=== PATIENT | male | born 1980 | race Caucasian/White ===

== ENCOUNTER 2016-09-26 10:54 | Emergency (ER) | payer OTHER ==
[~2016-09-26] VITALS: Ht 177.8 cm; Wt 79.6 kg
[~2016-09-26 10:54] MED LIST: ANTI-DIARRHEA2 MG PO; BACLOFEN20 MG PO; CIPRO500 MG PO; COMPAZINE10 MG PO; CYCLOBENZAPRINE 10MG; DICYCLOMINE HCL20 MG PO; EXCEDRIN MIGRA1 EACH PO; FLAGYL500 MG PO; FLEXERIL10 MG PO; HYDROCODON-ACE1 EAC7 PO; IBUPROFEN800 MG PO; INDOCIN25 MG PO; LIDODERM 5% P1 PATCH TD; NAPROSYN500 MG PO; NAPROXEN SODIU550 MG; NAPROXEN500 MG PO; PEN-VEE K,VEET500 MG PO; PERCOCET 5/31 TABLET PO; PREDNISONE10 MG PO; ZOFRAN ODT4 MG PO
[2016-09-26 11:56] LABS: HEMATOCRIT 42.6 % (38.0-50.0); MEAN PLAT.VOLUME 11.7 uM^3 (9.0-12.4); PLATELET COUNT 179 K/uL (156-360); RBC DIS.WIDTH-CV 14.3 % (11.8-14.6); RBC DIS.WIDTH-SD 45.9 % (39-53); RED BLOOD COUNT 4.84 M/uL (4.00-5.50); WHITE BLOOD COUNT 13.6 K/uL (4.1-10.2)
[2016-09-26 12:11] LABS: CHLORIDE 102 mEq/L (99-109); POTASSIUM 4.3 mEq/L (3.7-5.4); SODIUM 138 mEq/L (136-147)
[2016-09-26 12:13] LABS: GLUCOSE 84 mg/dL (70-99)
[2016-09-26 12:14] LABS: ANION GAP 10 MEQ/L (2-14)
[2016-09-26 12:15] LABS: TOTAL BILIRUBIN 0.9 mg/dL (0.0-1.0)
[2016-09-26 12:16] LABS: ALKALINE PHOSPHATASE 62 IU/L (3-129)
[2016-09-26 12:17] LABS: GFR ESTIMATE (CALCULATED) > 59 mL/min/
[2016-09-26 12:18] LABS: UREA NITROGEN (BUN) 19 mg/dL (9-23)
[2016-09-26 12:20] LABS: LIPASE 38 U/L (1.0-51.0)
[2016-09-26 12:28] LABS: ADD MIUA? YES; BILIRUBIN NEGATIVE; BLOOD NEGATIVE; COLOR YELLOW ((YELLOW)); GLUCOSE (STRIP) NEGATIVE; KETONES NEGATIVE; LEUKOCYTES SMALL; NITRITE NEGATIVE; PROTEIN (STRIP) NEGATIVE; SPECIFIC GRAVITY 1.018 (1.000-1.030); UROBILINOGEN 0.2 MG/DL (0.2-1.0)
[2016-09-26 12:41] LABS: CREATINE KINASE 93 IU/L (1-294); TOTAL CK 93 IU/L (1-294)
[2016-09-26 12:45] LABS: BACTERIA RARE; CASTS NONE SEEN /LPF; CRYSTALS NONE SEEN; EPITHELIAL CELLS 1+; MUCUS NONE SEEN; RED BLOOD CELLS NONE SEEN /HPF (0-5); UCUL ADDED? NO
[2016-09-26 12:46] LABS: CK-MB 0.8 ng/mL (0.0-4.9)
[2016-09-26] MEDS ORDERED: CIPRO500 MG PO (13:38)
[2016-09-26] MEDS ORDERED: FLAGYL500 MG PO (13:38)
[2016-09-26] MEDS ORDERED: PERCOCET 5/31 TABLET PO (13:38)
[2016-09-26 13:58] VITALS: BP 137/82
== END 2016-09-26 14:00 | disposition home or self-care (01) ==
LOC: EME 10:54
PROVIDERS: Physician Assistant
DX: K52.9 Noninfective gastroenteritis and colitis, unspecified (principal); F17.200 Nicotine dependence, unspecified, uncomplicated; Z88.6 Allergy status to analgesic agent
CPT/HCPCS: 74177; 80053; 81003; 82550; 82553; 83690; 85027; 99281; 99284; J3010; J7030

== ENCOUNTER 2016-10-17 09:29 | Emergency (ER) | payer OTHER ==
[~2016-10-17] VITALS: Ht 177.8 cm; Wt 82.3 kg
[2016-10-17] MEDS ORDERED: VALIUM5 MG PO (11:40)
[2016-10-17] MEDS ORDERED: NAPROSYN500 MG PO (11:40)
[2016-10-17 12:44] VITALS: BP 151/99
== END 2016-10-17 12:45 | disposition home or self-care (01) ==
LOC: EME 09:29
DX: M54.12 Radiculopathy, cervical region (principal); F17.200 Nicotine dependence, unspecified, uncomplicated
CPT/HCPCS: 72125; 99281; 99284; J1885

== ENCOUNTER 2017-01-10 16:13 | Emergency (ER) | payer OTHER ==
[~2017-01-10] VITALS: Ht 177.8 cm; Wt 85.1 kg
[~2017-01-10 16:13] MED LIST changes: +VALIUM5 MG PO
[2017-01-10 17:17] LABS: HEMATOCRIT 40.7 % (38.0-50.0); MCH 30.3 PG (29.0-34.0); MCHC 33.9 G/DL (30.0-36.0); MCV 89.3 FL (86-99); RBC DIS.WIDTH-CV 13.2 % (11.8-14.6); RBC DIS.WIDTH-SD 43.3 % (39-53); RED BLOOD COUNT 4.56 M/uL (4.00-5.50); WHITE BLOOD COUNT 14.3 K/uL (4.1-10.2)
[2017-01-10 17:28] LABS: CHLORIDE 105 mEq/L (99-109); POTASSIUM 3.9 mEq/L (3.7-5.4); SODIUM 140 mEq/L (136-147)
[2017-01-10 17:31] LABS: ANION GAP 10 MEQ/L (2-14); GLUCOSE 101 mg/dL (70-99)
[2017-01-10 17:34] LABS: GFR ESTIMATE (CALCULATED) > 59 mL/min/
[2017-01-10 17:35] LABS: UREA NITROGEN (BUN) 21 mg/dL (9-23)
[2017-01-10 17:38] LABS: TROP-I INTERPRETATION NEGATIVE; TROPONIN-I < 0.01 ng/mL (0.0-0.30)
[2017-01-10 18:30] VITALS: BP 128/84
[2017-01-10 18:37] LABS: MEAN PLAT.VOLUME 11.4 uM^3 (9.0-12.4); PLAT.SUFFICIENCY ADEQUATE; PLATELET COUNT 221 K/uL (156-360)
== END 2017-01-10 19:21 | disposition left against medical advice (07) ==
LOC: EME 16:13
DX: R07.9 Chest pain, unspecified (principal); R19.7 Diarrhea, unspecified; F17.200 Nicotine dependence, unspecified, uncomplicated
CPT/HCPCS: 71020; 80048; 84484; 85027; 93005; 99281; 99284

== ENCOUNTER 2017-04-22 22:58 | Emergency (ER) | payer OTHER ==
[~2017-04-22] VITALS: Ht 177.8 cm; Wt 79.7 kg
[2017-04-22 23:39] LABS: HEMATOCRIT 38.4 % (38.0-50.0); MCH 30.5 PG (29.0-34.0); MCHC 34.1 G/DL (30.0-36.0); MCV 89.5 FL (86-99); MEAN PLAT.VOLUME 11.3 uM^3 (9.0-12.4); PLATELET COUNT 147 K/uL (156-360); RBC DIS.WIDTH-CV 13.2 % (11.8-14.6); RBC DIS.WIDTH-SD 43.5 % (39-53); RED BLOOD COUNT 4.29 M/uL (4.00-5.50); WHITE BLOOD COUNT 9.5 K/uL (4.1-10.2)
[2017-04-22 23:47] LABS: CHLORIDE 103 mEq/L (99-109); POTASSIUM 3.7 mEq/L (3.7-5.4); SODIUM 137 mEq/L (136-147)
[2017-04-22 23:48] LABS: GLUCOSE 97 mg/dL (70-99)
[2017-04-22 23:50] LABS: ANION GAP 9 MEQ/L (2-14)
[2017-04-22 23:52] LABS: GFR ESTIMATE (CALCULATED) > 59 mL/min/
[2017-04-22 23:53] LABS: UREA NITROGEN (BUN) 22 mg/dL (9-23)
[2017-04-23] LABS: TROP-I INTERPRETATION NEGATIVE; TROPONIN-I < 0.01 ng/mL (0.0-0.30)
[2017-04-23 02:06] LABS: TROP-I INTERPRETATION NEGATIVE; TROPONIN-I < 0.01 ng/mL (0.0-0.30)
[2017-04-23 02:29] VITALS: BP 104/59
== END 2017-04-23 02:30 | disposition home or self-care (01) ==
LOC: EME 22:58
PROVIDERS: Emergency Medicine
DX: R07.9 Chest pain, unspecified (principal); K50.90 Crohn's disease, unspecified, without complications; M47.892 Other spondylosis, cervical region; F17.200 Nicotine dependence, unspecified, uncomplicated; Z87.19 Personal history of other diseases of the digestive system; Z98.890 Other specified postprocedural states; Z88.5 Allergy status to narcotic agent
CPT/HCPCS: 71020; 80048; 84484; 85027; 93005; 99281; 99284

== ENCOUNTER 2017-08-20 23:30 | Emergency (ER) | payer OTHER ==
[~2017-08-20] VITALS: Ht 177.8 cm; Wt 81.9 kg
[2017-08-21 01:12] VITALS: BP 120/88
== END 2017-08-21 01:13 | disposition home or self-care (01) ==
LOC: EME 23:30
DX: S61.011A Laceration without foreign body of right thumb without damage to nail, initial encounter (principal); W26.0XXA Contact with knife, initial encounter; Y93.89 Activity, other specified; Z23 Encounter for immunization; I10 Essential (primary) hypertension; K50.90 Crohn's disease, unspecified, without complications; F17.200 Nicotine dependence, unspecified, uncomplicated; Z88.5 Allergy status to narcotic agent
CPT/HCPCS: 99281; 99284

== ENCOUNTER 2017-08-25 07:37 | Emergency (ER) | payer OTHER ==
[~2017-08-25] VITALS: Ht 177.8 cm; Wt 81.7 kg
[2017-08-25] MEDS ORDERED: FLEXERIL10 MG PO (11:00)
[2017-08-25 11:58] VITALS: BP 125/75
== END 2017-08-25 11:59 | disposition home or self-care (01) ==
LOC: EME 07:37
DX: M54.12 Radiculopathy, cervical region (principal); M25.521 Pain in right elbow; M19.90 Unspecified osteoarthritis, unspecified site; K50.90 Crohn's disease, unspecified, without complications; Z88.5 Allergy status to narcotic agent; F17.200 Nicotine dependence, unspecified, uncomplicated
CPT/HCPCS: 73080; 99281; 99284

== ENCOUNTER 2017-11-12 04:48 | Emergency (ER) | payer OTHER ==
[~2017-11-12] VITALS: Ht 177.8 cm; Wt 84.0 kg
[2017-11-12] MEDS ORDERED: MEDROL DOSEPAK4 MG PO (05:10)
[2017-11-12] MEDS ORDERED: PERCOCET 5/31 TABLET PO (05:10)
[2017-11-12] MEDS ORDERED: FLEXERIL10 MG PO (05:10)
[2017-11-12 05:43] VITALS: BP 148/88
== END 2017-11-12 05:44 | disposition home or self-care (01) ==
LOC: EME 04:48
DX: S39.012A Strain of muscle, fascia and tendon of lower back, initial encounter (principal); X50.0XXA Overexertion from strenuous movement or load, initial encounter; K50.90 Crohn's disease, unspecified, without complications; I10 Essential (primary) hypertension; M19.90 Unspecified osteoarthritis, unspecified site; M50.30 Other cervical disc degeneration, unspecified cervical region; F17.200 Nicotine dependence, unspecified, uncomplicated; Z88.5 Allergy status to narcotic agent
CPT/HCPCS: 99281; 99282

== ENCOUNTER 2018-01-18 08:07 | Emergency (ER) | payer OTHER ==
[~2018-01-18] VITALS: Ht 177.8 cm; Wt 82.0 kg
[~2018-01-18 08:07] MED LIST changes: +MEDROL DOSEPAK4 MG PO
[2018-01-18 09:46] LABS: APPEARANCE CLEAR ((CLEAR)); BILIRUBIN NEGATIVE; BLOOD NEGATIVE; COLOR YELLOW ((YELLOW)); GLUCOSE (STRIP) NEGATIVE; KETONES NEGATIVE; LEUKOCYTES NEGATIVE; NITRITE NEGATIVE; PROTEIN (STRIP) 30; SPECIFIC GRAVITY 1.024 (1.000-1.030); UROBILINOGEN 0.2 MG/DL (0.2-1.0)
[2018-01-18] MEDS ORDERED: FLEXERIL10 MG PO (10:21)
[2018-01-18] MEDS ORDERED: MEDROL DOSEPAK4 MG PO (10:21)
[2018-01-18] MEDS ORDERED: NORCO 5/3251 TABLET PO (10:21)
[2018-01-18 11:14] VITALS: BP 127/83
== END 2018-01-18 11:17 | disposition home or self-care (01) ==
LOC: EME 08:07
PROVIDERS: Nurse Practitioner Family
DX: M54.41 Lumbago with sciatica, right side (principal); R35.0 Frequency of micturition; F17.200 Nicotine dependence, unspecified, uncomplicated
CPT/HCPCS: 81003; 99281; 99284; J7512

== ENCOUNTER 2018-03-06 09:04 | Emergency (ER) | payer OTHER ==
[~2018-03-06] VITALS: Ht 177.8 cm; Wt 82.6 kg
[~2018-03-06 09:04] MED LIST changes: +NORCO 5/3251 TABLET PO
[2018-03-06] MEDS ORDERED: NORCO 5/3251 TABLET PO (10:01)
[2018-03-06 10:36] VITALS: BP 142/88
== END 2018-03-06 10:37 | disposition home or self-care (01) ==
LOC: EME 09:04
DX: M54.12 Radiculopathy, cervical region (principal); I10 Essential (primary) hypertension; K50.90 Crohn's disease, unspecified, without complications; F17.200 Nicotine dependence, unspecified, uncomplicated; Z88.5 Allergy status to narcotic agent
CPT/HCPCS: 99281; 99284; J1100

== ENCOUNTER 2018-03-26 12:02 | Emergency (ER) | payer OTHER ==
[~2018-03-26] VITALS: Ht 177.8 cm; Wt 81.1 kg
[2018-03-26] MEDS ORDERED: BACTRIM,SEPT1 TABLET PO (13:56)
[2018-03-26] MEDS ORDERED: PERCOCET 5/31 TABLET PO (13:56)
[2018-03-26] MEDS ORDERED: KEFLEX500 MG PO (13:56)
[2018-03-26 14:06] VITALS: BP 145/91
== END 2018-03-26 14:24 | disposition home or self-care (01) ==
LOC: EME 12:02
DX: L03.211 Cellulitis of face (principal); G89.29 Other chronic pain; M54.9 Dorsalgia, unspecified; F17.200 Nicotine dependence, unspecified, uncomplicated
CPT/HCPCS: 99281; 99283